=== PATIENT | male | born 1960 | race Caucasian/White ===

== ENCOUNTER → 2017-08-12 | Outpatient (CLI) | payer BC ==
[~2017-08-12] MED LIST: ACIDOPHILUS1 EAC3; ADULT LOW DOSE81 MG; ASACOL400 MG PO; FISHOIL; HYDROCODON-ACE1 EAC8 PO; OMEPRAZOLE20 MG; ONE DAILY FOR1 EACH; PROPAFENONE 22225 M1
--- NOTE | 2017-08-12 16:11 | 2DMMODE ---
[place] [address] 2 D/M-MODE ECHOCARDIOGRAM Name: GRAEME SCHULTE [id number] Admission: 08/12/17 Attend Phys: Stanislav Gilbert, Discharge: Date of : 56 Date of Service: 08/12/17 1611 Report #: [id number] THIS REPORT FOR: //name// APPROVED REPORT Study performed: 08/12/2017 09:10:22 EXAM: Comprehensive 2D, Doppler, and color-flow Echocardiogram Patient Location: Out-Patient Status: routine BSA: 1.90 HR: 84 bpm BP: 140/80 mmHg Other Information Study Quality: Good Indications Aortic Insuff 2D Dimensions LVEF(%): 61.14 (>50%) IVSd: 10.96 (7-11mm) LVOT Diam: 19.98 (18-24mm) LVDd: 44.19 mm PWd: 11.75 (7-11mm) Ascending Ao: 31.96 (22-36mm) LVDs: 29.80 (25-40mm) Aortic Root: 26.26 mm Pereira's LVEF: 61.14 % Volumes Left Atrial Volume (Systole) LA ESV Index: 14.10 mL/m2 Aortic Valve AoV Peak Hernandez.: 1.06 m/s AO Peak Gr.: 4.47 mmHg LVOT Max P.05 mmHg AO Mean Gr.: 2.48 mmHg LVOT Mean P.10 mmHg LVOT Max V: 0.72 m/s AO V2 VTI: 20.72 cm LVOT Mean V: 0.49 m/s DANIEL (VTI): 2.47 cm2 LVOT V1 VTI: 16.36 cm AI [place]: 4.41 m/s2 AI PHT: 356.87 [place] [address] 2 D/M-MODE ECHOCARDIOGRAM Name: GRAEME SCHULTE Room: [facility]#: [id number] Admission: 08/12/17 Attend Phys: Stanislav Gilbert, Discharge: Date of : 56 Date of Service: 08/12/17 1611 Report #: [id number] E/A Ratio: 1.10 MV Decel. Time: 136.75 ms MV E Max Hernandez.: 0.53 m/s MV PHT: 39.66 ms MVA (PHT): 5.55 cm2 TDI E/Lateral E': 5.30 E/Medial E': 5.30 Medial E' Hernandez.: 0.10 m/s Lateral E' Hernandez.: 0.10 m/s Pulmonary Valve PV Peak Hernandez.: 0.65 m/s PV Peak Gr.: 1.70 mmHg Tricuspid Valve TR Peak Gr.: 19.15 mmHg RVSP: 24.15 mmHg Left Ventricle The left ventricle is normal size. There is normal LV segmental wall motion. Mild concentric left ventricular hypertrophy. Left ventricular systolic function is normal. LVEF is 55-60%. Transmitral Doppler flow pattern suggests impaired LV relaxation. Right Ventricle The right ventricle is normal size. The right ventricular systolic function is normal. Atria The left atrium size is normal. The right atrium size is normal. Aortic Valve The aortic valve is normal in structure. Moderate aortic regurgitation. There is no aortic valvular stenosis. Mitral Valve The mitral valve is normal in structure. Trace mitral regurgitation. No evidence of mitral valve stenosis. Tricuspid Valve The tricuspid valve is normal in structure. Mild tricuspid regurgitation. The RVSP is __24.1 mmHg. Pulmonic Valve The pulmonary valve is normal in structure. There is no pulmonic [place] [address] 2 D/M-MODE ECHOCARDIOGRAM Name: GRAEME SCHULTE Pradeep [id number] Admission: 08/12/17 Attend Phys: Stanislav Gilbert, Discharge: Date of : 56 Date of Service: 08/12/17 1611 Report #: [id number] Great Vessels The aortic root is normal in size. IVC is normal in size and collapses with >50% inspiration Pericardium There is no pericardial effusion. <Conclusion> The left ventricle is normal size. Mild concentric left ventricular hypertrophy. Left ventricular systolic function is normal. LVEF is 55-60%. Transmitral Doppler flow pattern suggests impaired LV relaxation. Moderate aortic regurgitation. Trace mitral regurgitation. Mild tricuspid regurgitation. The RVSP is __24.1 mmHg. <ELECTRONICALLY SIGNED> By: Stanislav Gilbert MD, FACC 08/12/171610 10 10 Stanislav Gilbert MD, FACC /INF
== END ==
LOC: M.CRD 08:55
DX: I08.3 Combined rheumatic disorders of mitral, aortic and tricuspid valves (principal)

== ENCOUNTER → 2017-08-26 | Outpatient (CLI) | payer BC ==
--- NOTE | 2017-09-01 08:33 | TST ---
[place] [address] TREADMILL STRESS TEST Name: GRAEME SCHULTE Room: [facility]#: [id number] Admission: 08/26/17 Attend Phys: Stanislav Gilbert, Discharge: Date of : 56 Date of Service: 08/26/17 1538 Report #: [id number] THIS REPORT FOR: //name// CC: Damion Henry DATE OF SERVICE: 08/26/2017 REFERRING PHYSICIAN: Dr. Shirley and Dr. Gilbert. INDICATIONS: Chest pain. Standard Beny protocol exercise stress test. The patient exercised for 10 minutes and 3 seconds to a maximum heart rate of 167 beats per minute. The patient achieved 103% maximum predicted heart rate and an energy expenditure equivalent to 12.62 METS. The baseline blood pressure was 168/88 mmHg with a resting pulse rate of 82 beats per minute. At peak stress, the blood pressure was 194/84 mmHg with peak stress heart rate of 167 beats per minute. In recovery, the blood pressure was 139/77 with a recovery heart rate of 94 beats per minute. Exercise was discontinued due to dyspnea and fatigue. The patient had no chest discomfort with exercise. The baseline 12-lead electrocardiogram showed sinus rhythm without significant ST or T-wave abnormality. EKGs obtained during and post-exercise showed sinus rhythm and sinus tachycardia with at first upsloping and then downsloping ST segment depression at peak exercise of approximately 2 to [address] segment depression resolved within 1 minute of recovery. Recovery EKGs were unremarkable. IMPRESSIONS: 1. Clinical response, nonischemic. 2. EKG response ischemic. The patient did develop some ST segment depression at peak exercise that resolved quickly in recovery. Whether this represents true ischemia or ST segment changes due to elevated blood pressure with exercise is uncertain. Consider additional stress testing with alternate imaging modality. <ELECTRONICALLY SIGNED> By: Stanislav Gilbert MD, FACC 09/01/17 0833 1538 2218 Stanislav Gilbert MD, FACC /nt
== END ==
LOC: M.CRD 10:43
DX: R07.2 Precordial pain (principal)

== ENCOUNTER → 2018-03-31 | Outpatient (CLI) | payer BC | LOC: M.RAD 10:34 | DX: M79.642 Pain in left hand (principal); G89.29 Other chronic pain ==

== ENCOUNTER → 2019-05-31 | Outpatient (CLI) | payer BC | LOC: M.LAB 01:16 | DX: E87.6 Hypokalemia (principal) ==

== ENCOUNTER 2020-08-31 14:34 | Emergency (ER) | payer BC ==
[~2020-08-31] VITALS: Ht 175.3 cm; Wt 74.8 kg
[2020-08-31] MEDS ORDERED: COZAAR 25 MG TA25 M1 PO (14:44)
[2020-08-31] MEDS ORDERED: HYDROCHLOROTHIA25 M2 PO (14:44)
[2020-08-31 15:03] LABS: ABSOLUTE EOSINOPHILS 0.3 thou/uL (0.0-0.7); ABSOLUTE LYMPHOCYTES 1.4 thou/uL (0.8-5.3); ABSOLUTE MONOCYTES 0.4 thou/uL (0.0-1.2); ABSOLUTE NEUTROPHILS 3.4 thou/uL (1.6-8.1); BASOPHILS 0.5 %; EOSINOPHILS 5.5 %; HEMATOCRIT 44.3 % (42.0-52.0); HEMOGLOBIN 15.5 gm/dL (14.0-18.0); LYMPHOCYTES 25.7 %; MCHC 35.1 g/dL (28.0-37.0); MCV 91.1 fL (80.0-100.0); MONOCYTES 7.8 %; MPV 8.5 fl. (7.2-11.1); NUCLEATED RBCS 0 /100WBC; PLATELET COUNT* 161 thou/uL (150-400); POLYS 60.5 %; RBC 4.86 mil/uL (4.50-6.00); RDW-CV 14.2 % (10.5-14.5); WBC 5.6 thou/uL (4.0-11.0)
[2020-08-31 15:12] LABS: APTT 26.1 Seconds (25.0-31.3); PROTIME 10.4 Seconds (9.20-11.50)
[2020-08-31 15:18] LABS: CALCIUM 8.9 mg/dL (8.5-10.1); CREATININE 1.3 mg/dL (0.6-1.3); POTASSIUM 3.6 mmol/L (3.5-5.1)
[2020-08-31 15:25] LABS: CK-MB MASS 0.5 ng/mL (<0.5-3.6); MAGNESIUM 2.1 mg/dL (1.8-2.4); TOTAL BILIRUBIN 1.1 mg/dL (<0.1-1.0)
--- NOTE | 2020-08-31 16:05 | EKG ---
[place] [address] ELECTROCARDIOGRAM REPORT Name: ERISGRAEME Pradeep Room: [facility]#: [id number] Admission: 08/31/20 Attend Phys: Discharge: Date of : 56 Date of Service: 08/31/20 1440 Report #: [id number] THIS REPORT FOR: //name// [facility] ED Test Date: 2020-08-31 Test Time: 14:40:10 Pat Name: GRAEME SCHULTE Department: Room: Gender: Supervisor [employer]: [employer] : 1960 Requested By: Freeman Mendez Order Number: [id number] MD: Stanislav Gilbert Measurements Intervals [place] Rate: 81 P: 52 MN: 189 QRS: 45 QRSD: 99 T: 50 QT: 352 QTc: 409 Interpretive Statements Sinus rhythm Possible left atrial enlargement Compared to ECG 05/06/2016 21:46:22 ST (T wave) deviation no longer present Electronically Signed On 08-31-2020 16:05:39 [employer] by Stanislav Gilbert [email or web address] <ELECTRONICALLY SIGNED> By: Stanislav Gilbert MD, FACC 08/31/20 1605 1440 1440 Stanislav Gilbert MD, [facility] /EPI
[2020-08-31 16:13] VITALS: BP 126/69
== END 2020-08-31 16:14 | disposition home or self-care (01) ==
LOC: M.ERS 14:34
PROVIDERS: Family Medicine
DX: R42 Dizziness and giddiness (principal); K21.9 Gastro-esophageal reflux disease without esophagitis

== ENCOUNTER → 2021-01-08 | Outpatient (CLI) | payer BC ==
[~2021-01-08] MED LIST changes: +COZAAR 25 MG TA25 M1 PO; +HYDROCHLOROTHIA25 M2 PO
--- NOTE | 2021-01-08 12:50 | 2DMMODE ---
[place] [address] 2 D/M-MODE ECHOCARDIOGRAM Name: SCHULTE,ROBERT Pradeep Room: [facility]#: [id number] Admission: 01/08/21 Attend Phys: Stanislav Gilbert, Discharge: Date of : 56 Date of Service: 01/08/21 1250 Report #: [id number] THIS REPORT FOR: cc: Vishnu Zaragoza MD, Dean L. MD Holkins,Damion Chen MD [facility] ~ APPROVED REPORT Study performed: 01/08/2021 10:56:38 EXAM: Comprehensive 2D, Doppler, and color-flow Echocardiogram Patient Location: Out-Patient BSA: 1.92 HR: 68 bpm BP: 130/70 mmHg Other Information Study Quality: Good Indications Aortic Valve Insuff. 2D Dimensions IVSd: 10.64 (7-11mm) LVOT Diam: 20.36 (18-24mm) LVDd: 48.88 mm PWd: 10.22 (7-11mm) Ascending Ao: 31.28 (22-36mm) LVDs: 28.70 (25-40mm) Aortic Root: 26.83 mm Volumes Left Atrial Volume (Systole) LA ESV Index: 17.80 mL/m2 Aortic Valve AoV Peak Hernandez.: 1.18 m/s AO Peak Gr.: 5.56 mmHg LVOT Max P.47 mmHg AO Mean Gr.: 2.56 mmHg LVOT Mean P.46 mmHg LVOT Max V: 0.93 m/s AO V2 VTI: 21.47 cm LVOT Mean V: 0.54 m/s DANIEL (VTI): 3.05 cm2 LVOT V1 VTI: 20.12 cm AI [place]: 4.14 m/s2 AI PHT: 347.36 [place] [address] 2 D/M-MODE ECHOCARDIOGRAM Name: GRAEME SCHULTE Room: [facility]#: [id number] Admission: 01/08/21 Attend Phys: Stanislav Gilbert, Discharge: Date of : 56 Date of Service: 01/08/21 1250 Report #: [id number] Mitral Valve E/A Ratio: 1.90 MV Decel. Time: 149.18 ms MV E Max Hernandez.: 0.91 m/s MV PHT: 43.26 ms MVA (PHT): 5.09 cm2 TDI E/Lateral E': 8.27 E/Medial E': 8.27 Medial E' Hernandez.: 0.11 m/s Lateral E' Hernandez.: 0.11 m/s Pulmonary Valve PV Peak Hernandez.: 0.60 m/s PV Peak Gr.: 1.45 mmHg Left Ventricle The left ventricle is normal size. There is normal LV segmental wall motion. There is normal left ventricular wall thickness. Left ventricular systolic function is normal. The left ventricular ejection fraction is within the normal range. LVEF is 55-60%. The left ventricular diastolic function is normal. Right Ventricle The right ventricle is normal size. The right ventricular systolic function is normal. Atria The left atrium size is normal. The right atrium size is normal. Aortic Valve Mild aortic valve sclerosis. Moderate aortic regurgitation. There is no aortic valvular stenosis. Mitral Valve The mitral valve is normal in structure. Mild to moderate mitral regurgitation. No evidence of mitral valve stenosis. Tricuspid Valve The tricuspid valve is normal in structure. There is no tricuspid valve regurgitation noted. Pulmonic Valve The pulmonary valve is normal in structure. There is no pulmonic [place] [address] 2 D/M-MODE ECHOCARDIOGRAM Name: SCHULTEGRAEME BRITO Room: [facility]#: [id number] Admission: 01/08/21 Attend Phys: Stanislav Gilbert, Discharge: Date of : 56 Date of Service: 01/08/21 1250 Report #: [id number] Great Vessels The aortic root is normal in size. IVC is normal in size and collapses >50% with inspiration. Pericardium There is no pericardial effusion. <Conclusion> There is normal left ventricular wall thickness. Left ventricular systolic function is normal. The left ventricular ejection fraction is within the normal range. LVEF is 55-60%. The left ventricular diastolic function is normal. The right ventricle is normal size. The left atrium size is normal. Mild aortic valve sclerosis. Moderate aortic regurgitation. There is no aortic valvular stenosis. The mitral valve is normal in structure. Mild to moderate mitral regurgitation. The tricuspid valve is normal in structure. IVC is normal in size and collapses >50% with inspiration. There is no pericardial effusion. There is normal LV segmental wall motion. <ELECTRONICALLY SIGNED> By: Damion Foreman MD, FACC 01/08/21 1250 1250 1250 Damion Foreman MD, FACC /INF
== END ==
LOC: M.CRD 12-27 11:00
PROVIDERS: ATTEND Internal Medicine Cardiovascular Disease
DX: I08.0 Rheumatic disorders of both mitral and aortic valves (principal)

== ENCOUNTER → 2021-03-09 | Outpatient (CLI) | payer BC ==
[2021-03-09 12:27] LABS: ABSOLUTE EOSINOPHILS 0.3 thou/uL (0.0-0.7); ABSOLUTE LYMPHOCYTES 1.5 thou/uL (0.8-5.3); ABSOLUTE MONOCYTES 0.5 thou/uL (0.0-1.2); ABSOLUTE NEUTROPHILS 2.9 thou/uL (1.6-8.1); BASOPHILS 0.8 %; EOSINOPHILS 4.9 %; HEMATOCRIT 40.9 % (42.0-52.0); HEMOGLOBIN 14.4 gm/dL (14.0-18.0); LYMPHOCYTES 28.5 %; MCH 31.8 pg (26.0-34.0); MCHC 35.2 g/dL (28.0-37.0); MCV 90.3 fL (80.0-100.0); MONOCYTES 9.9 %; MPV 8.5 fl. (7.2-11.1); NUCLEATED RBCS 0 /100WBC; PLATELET COUNT* 149 thou/uL (150-400); POLYS 55.9 %; RBC 4.53 mil/uL (4.50-6.00); RDW-CV 13.9 % (10.5-14.5); WBC 5.1 thou/uL (4.0-11.0)
[2021-03-09 13:51] LABS: ALBUMIN 3.9 g/dL (3.4-5.0); ALKALINE PHOSPHATASE 76 U/L (46-116); ANION GAP 7 mmol/L (7-16); BUN 20 mg/dL (7-18); CALCIUM 8.5 mg/dL (8.5-10.1); CHLORIDE 106 mmol/L (98-107); CO2 29 mmol/L (21-32); CREATININE 1.2 mg/dL (0.6-1.3); GLUCOSE 106 mg/dL (70-99); POTASSIUM 4.4 mmol/L (3.5-5.1); SGOT 15 U/L (15-37); SGPT 27 U/L (30-65); SODIUM 142 mmol/L (136-145); TOTAL BILIRUBIN 1.3 mg/dL (<0.1-1.0); TOTAL PROTEIN 6.7 g/dL (6.4-8.2); TROPONIN-I LEVEL <0.06 ng/mL (<0.06)
== END ==
LOC: M.LAB 12:02
PROVIDERS: ATTEND Internal Medicine
DX: R07.9 Chest pain, unspecified (principal)

== ENCOUNTER → 2021-03-28 | Outpatient (CLI) | payer BC | LOC: M.CT 11:00 | PROVIDERS: ATTEND Internal Medicine | DX: K40.90 Unilateral inguinal hernia, without obstruction or gangrene, not specified as recurrent (principal); M51.37 Other intervertebral disc degeneration, lumbosacral region ==

== ENCOUNTER → 2021-04-12 | Outpatient (CLI) | payer BC | LOC: M.LAB 05:54 | PROVIDERS: ATTEND Anesthesiology | DX: E87.6 Hypokalemia (principal) ==

== ENCOUNTER → 2021-06-18 | Outpatient (CLI) | payer BC ==
--- NOTE | 2021-06-18 17:09 | CARDNUC ---
[place] [address] CARDIAC NUCLEAR IMAGING REPORT Name: GRAEME CSHULTE Room: [facility]#: [id number] Admission: 06/18/21 Attend Phys: Stanislav Gilbert, Discharge: Date of : 56 Date of Service: 06/18/21 1709 Report #: [id number] THIS REPORT FOR: cc: Vishnu Zaragoza MD, Dean L. MD [place],Stanislav Greer MD [facility] ~ APPROVED REPORT Study performed: 06/18/2021 09:57:11 Exam: Nuclear Stress Test Indication: Chest pain Patient Location: Out-Patient Stress Nurse: Hollie Goodwin RN Ht: 5 ft 9 in Wt: 168 lbs BSA: 1.92 m2 BMI: 24.80 Medical History Medical History: HTN, Hyperlipidemia, Valvular heart disease Medications: hctz, losartan, rythmol Allergies: gabapentin Cardiac Risk Factors: Age, FHX of CAD, HTN, Hyperlipidemia, Past Smoker Exercise History: Physically active Stress Test Details Stress Test: Exercise stress testing was performed using a Beny protocol. HR Resting HR: 66 bpm Max Heart Rate (APMHR): 157 bpm Max HR Achieved: 143 bpm Target HR (85% APMHR): 133 bpm % of APMHR: 91 Recovery HR: 92 bpm HR response to stress: Normal HR response to stress BP Resting BP: 154/79 mmHg Max BP: 233/69 mmHg BP response to stress: Abnormal hypertensive [place] [address] CARDIAC NUCLEAR IMAGING REPORT Name: GRAEME SCHULTE Room: [facility]#: [id number] Admission: 06/18/21 Attend Phys: Stanislav Gilbert, Discharge: Date of : 56 Date of Service: 06/18/21 1709 Report #: [id number] Resting ECG: Sinus Rhythm Stress ECG: Sinus Tachycardia ST Change: Horizontal ST depression Maximum ST Deviation: 0.5 mm Arrhythmia: None Recovery ECG: Sinus Rhythm Recovery ST Change: Horizontal ST depression Recovery ST Deviation: 0.5 mm Recovery Arrhythmia: None Clinical Reason for Termination: Maximal effort, Fatigue Exercise duration: 9 min 0 sec Exercise capacity: 10.16 METs Functional Aerobic Impairment 91% The patient tolerated standard Beny protocol exercise without significant cardiac symptoms. Stress ECG Conclusion Baseline twelve-lead EKG shows sinus rhythm without significant ST segment abnormality. EKGs obtained during and post exercise show sinus rhythm and sinus tachycardia with 0.[address] segment depression that does not meet diagnostic criteria for ischemia. NM EXAM: Myocardial Perfusion REST/STRESS Resting Data Rest SPECT myocardial perfusion imaging was performed in supine position 30 minutes following the intravenous injection of 9.9 mCi of Tc-99m Sestamibi. Time of rest injection: 08:55 The images were gated to evaluate regional wall motion and calculate left ventricular ejection fraction. Administration Route: IV Administration Site: Right AC Exercise Stress At peak stress, the patient was injected intravenously with 34.4mCi of Tc-99m Sestamibi. Time of stress injection: 10:15 Administration Route: IV Administration Site: Right AC Heart Rate at time of stress injection: 143 bpm. Patient continued to exercise for 1.5 minute(s). Gated Stress SPECT was performed 30 [place] [address] CARDIAC NUCLEAR IMAGING REPORT Name: GRAEME SCHULTE Room: [facility]#: [id number] Admission: 06/18/21 Attend Phys: Stanislav Gilbert, Discharge: Date of : 56 Date of Service: 06/18/21 1709 Report #: [id number] The images were gated to evaluate regional wall motion and calculate left ventricular ejection fraction. Prone imaging was performed. Study Quality Study: Good Artifact: Mild Diaphragmatic artifact Study Data At rest, the left ventricular ejection fraction was 55%.. Post stress, the left ventricular ejection was 61%.. TID = 0.94. Perfusion Perfusion images obtained in the supine position at rest and post exercise stress show photopenia of the inferior wall that is more pronounced on resting and stress images consistent with diaphragmatic attenuation artifact. The inferior wall photopenia resolves partially with prone imaging. No reversible defects are identified. Wall Motion Normal left ventricular wall motion. Nuclear Conclusion ECG Findings: negative for ischemia Clinical Findings: negative for ischemia Nuclear Findings: negative for ischemia Exercise Capacity: normal Left Ventricular Function: normal Risk Study: low Perfusion images show no reversible defect to suggest ischemia. There is moderate diaphragmatic attenuation artifact noted. Global LV systolic function is normal. This is a low risk study. <Conclusion> Baseline twelve-lead EKG shows sinus rhythm without significant ST segment abnormality. EKGs obtained during and post exercise show sinus rhythm and sinus tachycardia with 0.[address] segment depression that does not meet diagnostic criteria for ischemia. <ELECTRONICALLY SIGNED> By: Stanislav Gilbert MD, FACC 06/18/211708 08 08 Stanislav Gilbert MD, FACC /INF
== END ==
LOC: M.NUC 05-08 10:21 → M.CRD 05-21 08:00 → M.NUC 08:00
PROVIDERS: ATTEND Internal Medicine Cardiovascular Disease
DX: I10 Essential (primary) hypertension (principal); I48.0 Paroxysmal atrial fibrillation; R07.2 Precordial pain